=== PATIENT | male | born 1950 | race Asian ===

== ENCOUNTER 2017-02-24 15:28 | Outpatient (CLI) | payer OTHER, BC ==
[~2017-02-24 15:28] MED LIST: ASA LO-DOSE81 MG PO; CARV6.25 PO; LISI5TAB10 PO; OXYC5TAB24 PO; POLY3350 PO; RENVELA800 MG PO; SYNTHROID300 MCG PO
== END 2017-02-24 16:30 | disposition home or self-care (01) ==
LOC: LAB 15:28
DX: C73 Malignant neoplasm of thyroid gland (principal)
CPT/HCPCS: 84439; 84443; 84481; 86800

== ENCOUNTER 2017-07-21 15:07 | Outpatient (CLI) | payer OTHER, BC | END 2017-07-21 19:02 | disposition home or self-care (01) | LOC: LAB 15:07 | DX: C73 Malignant neoplasm of thyroid gland (principal) | CPT/HCPCS: 84439; 84443; 84481 ==

== ENCOUNTER 2018-04-23 10:14 | Outpatient (CLI) | payer OTHER, BC | END 2018-04-23 21:13 | disposition home or self-care (01) | LOC: LAB 10:14 | DX: C73 Malignant neoplasm of thyroid gland (principal) | CPT/HCPCS: 84439; 84443; 84481; 86376 ==

== ENCOUNTER 2018-07-16 08:57 | Outpatient (CLI) | payer OTHER, BC | END 2018-07-16 19:20 | disposition home or self-care (01) | LOC: LAB 08:57 | DX: C73 Malignant neoplasm of thyroid gland (principal) | CPT/HCPCS: 84439; 84443; 84481; 86800 ==